=== PATIENT | male | born 1975 | race Caucasian/White ===

== ENCOUNTER 2016-07-23 17:51 | Emergency (ER) | payer SELFPAY ==
[~2016-07-23] VITALS: Ht 193 cm; Wt 90.7 kg
[2016-07-23] MEDS ORDERED: HYDROMORPHONE INJ 2 MG/ML DISP.SYRIN IM ONE (18:30)
[2016-07-23] MEDS ORDERED: HYDROMORPHONE INJ 2 MG/ML DISP.SYRIN ONE (18:33)
== END 2016-07-23 18:48 | disposition home or self-care (01) ==
LOC: ER 17:55
DX: K08.89 Other specified disorders of teeth and supporting structures (principal)
CPT/HCPCS: A4606; J1170; Z7610